=== PATIENT | male | born 1970 | race Caucasian/White ===

== ENCOUNTER 2023-07-26 05:58 | Day surgery (SDC) | payer BC, SELFPAY ==
[2023-07-05 12:34] VITALS: BMI 33.4
[2023-07-05 13:04] LABS: % Basophils 0.8 % (0-2); % Eosinophils 2.6 % (0-6); % Immature Granulocytes 0.3 % (0-0.5); % Lymphocytes 45.7 % (20.5-51.1); % Monocytes 8.2 % (1.7-9.3); % Neutrophils 42.4 % (42.2-75.2); Absolute Basophils 0.1 10^3/uL (0-0.2); Absolute Eosinophils 0.2 10^3/uL (0-0.7); Absolute Lymphocytes 2.8 10^3/uL (1.2-3.4); Absolute Monocytes 0.5 10^3/uL (0.1-0.6); Absolute Neutrophils 2.6 10^3/uL (1.4-6.5); Hematocrit 45.7 % (39.0-52.0); Hemoglobin 16.1 g/dL (13.0-18.0); Mean Corp Hgb Conc. 35.2 g/dL (33.0-37.0); Mean Corpuscular Hgb 29.8 pg (27.0-31.0); Mean Corpuscular Volume 84.5 fL (80.0-94.0); Mean Platelet Volume 9.4 fL (7.4-10.4); Nucleated Red Blood Cells % 0 % (-); Platelet Count 223 10^3/uL (130-400); Red Blood Cell Count 5.41 10^6/uL (4.70-6.10); White Blood Cell Count 6.1 10^3/uL (4.8-10.8)
[2023-07-05 13:14] LABS: INR 1.05; PT 13.6 Sec (11.4-14.6)
[2023-07-05 13:20] LABS: ALT (SGPT) 53 U/L (0-50); AST (SGOT) 42 U/L (17-59); Albumin 4.5 g/dl (3.5-5.0); Alkaline Phosphatase 95 U/L (38-126); Blood Urea Nitrogen 24 mg/dl (9-20); Calcium 9.3 mg/dl (8.4-10.2); Carbon Dioxide 31 mmol/L (22-30); Chloride 101 mmol/L (98-107); Estimated Creatinine Clearance 103 ml/min; Glucose 95 mg/dl (70-99); Magnesium 2.1 mg/dl (1.6-2.3); Potassium 4.1 mmol/L (3.5-5.1); Sodium 135 mmol/L (135-145); Total Bilirubin 0.6 mg/dl (0.2-1.3); Total Protein 7.2 g/dl (6.3-8.2); eGFR > 60.00
[2023-07-26] VITALS (24 sets, daily range): BP systolic 109–131; BP diastolic 72–83; BMI 32.6
[2023-07-26 09:02] LABS: ACT-LR - POC 281 Seconds (116-155)
[2023-07-26 09:22] LABS: ACT-LR - POC 290 Seconds (116-155)
[2023-07-26 09:41] LABS: ACT-LR - POC 310 Seconds (116-155)
--- NOTE | 2023-07-26 09:55 | ITS.CL.ABL ---
[employer] - Ablation
Ablation
Procedure Report:
ELECTROPHYSIOLOGY ABLATION STUDY
DATE:: July 26, 2023 referring: Dr. Christiano florian
INDICATION: Paroxysmal supraventricular tachycardia in the form of atrial fibrillation.
HISTORY: See H and P. As above
ANTIARRHYTHMIC DRUG: Patient opted for pulmonary vein isolation
PRE-PROCEDURE APOLLO: No atrial thrombus, marked interatrial septal aneurysm
PRESENTING RHYTHM: Sinus bradycardia
'TIME-OUT': called and confirmed.
SEDATION/ANESTHESIA: provided via the anesthesia department using general anesthesia (LMA).
INTRAVENOUS/ARTERIAL ACCESS:
Right femoral venous - 8Fr
Left femoral venous - 8 Fr, 6 Fr
Ultrasound guidance for bilateral femoral vein access was utilized by me to obtain access with demonstration of normal anatomy
CHADS-VASC Score:
HAS-Bled Score
PROCEDURE:
1. A decapolar CS catheter was placed within the CS for mapping and pacing. This was also used as the reference catheter for the 3-D map.
2. The intracardiac ultrasound catheter was positioned in the RA to identify the FO for targeting of transseptal puncture, assist in identification of the pulmonary vein ostia, monitoring pre and post ablation pulmonary vein flow velocities,
monitoring for 'bubble' formation during RF application as a sign of thermal injury, and to monitor for pericardial effusion during mapping and ablation procedure. Left atrial size, LV ejection fraction, and pulmonary vein flows were monitored
pre and post ablation procedure. The other valves were inspected and found to be free of significant regurgitation or stenosis.
3. Half of the calculated heparin bolus was administered prior to the first transeptal puncture. Transseptal puncture was performed to diagnose RA and LA pressure so that safety of LA mapping and ablation could be further assessed, and to access
the left atrium and pulmonary veins for mapping and ablation. This entailed advancing an 8 Fr SL-1 sheath with dilator into the superior vena cava and withdrawing both (monitoring intracardiac ultrasound, fluoroscopy and tip pressure) with the tip
oriented toward the atrial septum. The fossa ovalis was engaged (indicated by sudden displacement of the sheath tip as well as tenting of the fossa seen on intracardiac ultrasound). Left atrial access required a pass with the Brock[place]brough needle
extended. Left atrial catheter position was confirmed by pressure monitoring (RA mean pressure 8 mm Hg and LA mean presure 12 mm Hg), LA saturation (99%), as well as fluoroscopy. The sheath was advanced over the dilator and positioned in the left
atrium. A safe septal wire and ProTrac wire were utilized to bring the flex cath to the left atrium. Transseptal puncture and sheath exchange and left atrium was made somewhat more difficult due to the marked stretching from the interatrial septal
aneurysm and great care was taken under ultrasound guidance to utilize both the CSF wire and a ProTrac wire to mitigate risk. The remainder of the calculated heparin bolus was administered and heparin was
infused to maintain ACT at 300 -350 seconds throughout the case.
4. RA pacing was performed via the proximal decapolar poles and LA pacing was performed via the distal decapolr poles.
5. A quadrapolar catheter was first positioned at the His position for His Bundle recording which was tagged via the 3-D Navex sytem, and then passed to the RVA for RV pacing and recording.
6. The ablation catheter was positioned through one of the transeptal seaths and a 20 pole ring mapping catheter was positioned through the second seath into the LA and then the ostia of the LIPV, LSPV, RSPV and the RIPV.
7. Next, a 3-D map was created using Navex. A 3-D reconstructed CT image was compared to the 3-D Navex map to assist in anatomic interpretation, mapping and ablation. The CT image and the NavX image were fused.
8. Pulmonary vein and extrapulmonary lesions were given. 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 The pulmonary veins were isolated with a 28 mm cryoballoon isolating
both left veins and the 3 right veins. Extrapulmonary vein lesions were given to the roof outside the left superior pulmonary vein with a 23 mm cryoballoon and at the inferior posterior region outside the right inferior pulmonary vein each for an
additional 3 minutes.
9. Normal sinus node AV node function were noted.
TOTAL FLOURO TIME: 21.6 minutes 209 mGy
TOTAL RF DURATION: 0 minutes
REVERSAL OF HEPARIN: 40 mg of protamine, slow IV administration
COMPLICATIONS:
None
Intracardiac US shows no pericardial effusion post ablation.
SUMMARY:
Complex left atrial mapping and ablation.
Isolation of all 4 pulmonary veins as above. Extrapulmonary lesions directed towards the roof outside the left superior pulmonary vein and the inferior posterior wall outside the right inferior pulmonary vein.
RECOMMENDATIONS:
1. Admit to monitored bed.
2. Resume anticoagulation
3. Out of bed 4 hours
4. Consider same-day discharge
Copy to: Dr. Christiano florian
--- NOTE | 2023-07-26 12:10 | PTCARENOTE ---
Dr Cardenas at pt bedside speaking to pt and pt's .
[2023-07-26] MEDS: ANESTHETIC LOZENGE 1 LOZENGE PO (12:11)
--- NOTE | 2023-07-26 13:04 | W.PN.UPDATE ---
Update Note
Progress Note Update
52 yo WM s/p PVI (same day). He feels good, no cp, sob, brittny diet, voiding, amb w/o dizziness, b/l groins c/d/i, EKG SR. He will continue OAC Eliquis, dose at 4pm at home. Activity restrictions reviewed. He will f/u Dr. Florian in 2 mo. He is for d/c
home after 3pm.
SUMMARY:�
Complex left atrial mapping and ablation.
Isolation of all 4 pulmonary veins as above.� Extrapulmonary lesions directed towards the roof outside the left superior pulmonary vein and the inferior posterior wall outside the right inferior pulmonary vein.
RECOMMENDATIONS:
1. Admit to monitored bed.
2. Resume anticoagulation
3.� Out of bed 4 hours
4.� Consider same-day discharge
Copy to: Dr. Christiano florian
--- NOTE | 2023-07-26 14:23 | PTCARENOTE ---
Estefania Springer FLO[employer] PLAN ADJUSTER at pt's bedside speaking to pt and pt's .
[2023-07-26] MEDS: ELIQUIS 5 MG PO (14:51)
--- NOTE | 2023-07-26 14:57 | CM ---
Priced Eliquis thru patient's RX plan: [employer]- [phone]. Patient has a annual family deductible to meet: $3200. He has met [phone] thus far. Once deductible is met, cost of Eliquis will be $0.
I can provide coupons for Eliquis: free 30 d, $10/mo coupon.
TT to [facility] to update.
== END 2023-07-26 15:00 | disposition home or self-care (01) ==
LOC: CATH 05:58
PROVIDERS: ATTENDING PHYSICIAN Internal Medicine Cardiovascular Disease; FAMILY PHYSICIAN Family Medicine; OTHER PHYSICIAN Internal Medicine Cardiovascular Disease
DX: I48.0 Paroxysmal atrial fibrillation (principal); I10 Essential (primary) hypertension; E78.5 Hyperlipidemia, unspecified; Z77.22 Contact with and (suspected) exposure to environmental tobacco smoke (acute) (chronic); E66.8 Other obesity; Z68.33 Body mass index [BMI] 33.0-33.9, adult; Z79.01 Long term (current) use of anticoagulants
CPT/HCPCS: C1766; C1894; C1733 ×2; C1769; C1730; C1893; C1892; C1759; 36415; 75572; 76937; 80053; 83735; 85025; 85347; 85610; 86850; 86900; 86901; 93005; 93656; 93657; Q9967

== ENCOUNTER 2023-08-22 06:37 | Emergency (ER) | payer BC, SELFPAY ==
[2023-08-22] VITALS (7 sets, daily range): BP systolic 130–178; BP diastolic 74–102; BMI 33.1
[2023-08-22 07:15] LABS: Urine Albumin 2+ (Neg - Trace); Urine Bilirubin 1+ (Negative); Urine Character Very Cloudy (Clear); Urine Color Amber; Urine Glucose Negative (Negative); Urine Ketone 1+ (Negative); Urine Leukocyte Trace (Negative); Urine Nitrite Negative (Negative); Urine Occult Blood 4+ (Negative); Urine Specific Gravity 1.025 (<1.030); Urine Urobilinogen Negative (Neg - 1+)
[2023-08-22 07:30] LABS: Urine Red Blood Cell >100 /HPF (0-2)
--- NOTE | 2023-08-22 08:33 | ED.GENMED ---
History of Present Illness
General
Chief Complaint: Male Genito-Urinary Symptoms
Source: patient
Exam Limitations: none
Time Seen by Provider: 08/22/23 08:25
Nursing documentation reviewed up to this point in time: agreed with
Travel History
Have you had any contact with someone who has COVID-19?: No
Do you have any symptoms of coronavirus? Fever > 100 degrees, chills, cough, shortness of breath, sore throat, loss of taste or smell, muscle aches, or headache?: No
History of Present Illness
History of Present Illness:
Patient is a 52-year-old male who presents to the ER for evaluation. Patient has a history of hypertension and recent A-fib. Patient was cardioverted 07/26/2023 and has been on Eliquis for the past 2 months. Patient started with hematuria
yesterday at 3 PM. He noticed bright red bleeding. He denies any clots. He he does feel little pressure in his lower abdomen. He denies any injury. He did injure his right shoulder 1 week ago and has been taking ibuprofen. He denies any fever
chills nausea vomiting back pain. Denies any weakness lightheaded dizziness.
Review of Systems
Review of Systems
Allergies reviewed?: Yes
All Other Systems: ROS reviewed and negative except as documented in HPI and ROS
Constitutional: Reports no symptoms; Denies fever or chills
EENT: Reports no symptoms
Respiratory: Reports no symptoms
ABD/GI: Reports other (lower abd pressure )
: Reports bleeding
Musculoskeletal: Reports no symptoms
Skin: Reports no symptoms
Neurological: Reports no symptoms
Psychiatric: Reports no symptoms
Phy Exam
General Physical Exam
General Presentation: no apparent distress
General age: appears stated age
General Skin: warm and dry
General Habitus: normal
General Mental: alert
General Hydration: appears well hydrated
Gastrointestinal Exam
Gastrointestinal Exam: other (suprapubic tenderness )
Neurological Exam
Neurological Exam: alert
Course
Orders/Labs/Results
Orders:
Orders
08/22/23 06:52
Shoulder, Right, Trauma [CR Shoulder, Trauma - Right] Urgent
Comment:
Reason For Exam: injured r shoulder 1 wk ago and has limited rom
08/22/23 07:03
Urinalysis Reflex To Culture Urgent
Date Specimen was Collected: 08/22/23
Time Specimen was Collected: 07:00
Urine Microscopic Reflex Cult Urgent
Urine Culture Urgent
ADILENE Source: U
Specimen Description:
Date Specimen was Collected: 08/22/23
Time Specimen was Collected: 07:00
08/22/23 08:26
IV Insert/Care/Rem.- Treatment PRN
0.9% Sodium Chloride 1000 ml [Nss] 1,000 ml IV BOLUS
08/22/23 08:44
Complete Blood Count/With Diff Urgent
Comprehensive Metabolic Panel Urgent
08/22/23 10:08
CT Abd/pel Without Iv Or Oral Urgent
Comment:
Reason For Exam: right side pain/hematuria
08/22/23 10:27
Electrocardiogram (*1) Stat
Reason for Study: Other
Other Reason for Exam: chest pain
EKG- Treatment ONCE
Abnormal Lab Results
08/22/23 08/22/23
07:03 08:44
WBC 14.1 H 10^3/uL
(4.8-10.8)
Abs Immat Gran (auto) 0.1 H 10^3/uL
(0-0.05)
Absolute Neuts (auto) 12.1 H 10^3/uL
(1.4-6.5)
Absolute Lymphs (auto) 1.1 L 10^3/uL
(1.2-3.4)
Absolute Monos (auto) 0.7 H 10^3/uL
(0.1-0.6)
Immature Gran % 0.6 H %
(0-0.5)
Neutrophils % 85.8 H %
(42.2-75.2)
Lymphocytes % 8.1 L %
(20.5-51.1)
BUN 24 H mg/dl
(9-20)
Glucose 117 H mg/dl
(70-99)
ALT 52 H U/L
(0-50)
Urine Ketones 1+ A
(Negative)
Ur Occult Blood Reflex 4+ A
(Negative)
Urine Bilirubin 1+ A
(Negative)
Leukocyte Esterase Rfl Trace A
(Negative)
Urine RBC >100 A /HPF
(0-2)
Urine Albumin (Reflex) 2+ A
(Neg - Trace)
08/22/23 08:44
08/22/23 08:44
Vital Signs
Initial and Last Documented VS:
Initial Vital Signs
Temp Pulse Resp BP Pulse Ox
97.5 F 70 17 178/102 97
08/22/23 06:47 08/22/23 06:47 08/22/23 06:47 08/22/23 06:47 08/22/23 06:47
Last Documented Vital Signs
Temp Pulse Resp BP Pulse Ox
97.5 F 75 17 136/78 97
08/22/23 06:47 08/22/23 11:45 08/22/23 11:45 08/22/23 11:00 08/22/23 11:45
Industrial Engineering consulted with Physician
Industrial Engineering consulted with physician?: Yes
Name of Physician Consulted: jez
MDM/Problems Addressed
Differential Diagnosis Includes:
Not limited to hematuria anemia kidney stone UTI
MDM/Problems Addressed:
Patient is a 52-year-old male who presented with hematuria. Patient is on Eliquis for heart ablation for A-fib. Patient arrives in sinus rhythm. Patient presented with complaints of hematuria but denied clots. He did have some mild discomfort in
his right abdomen right groin. Patient was found to have a 4�5 calculus within the right distal ureter proximal to the right UVJ. Patient no acute distress. No clots here in the ER no nausea vomiting fever chills. White count minimally elevated
likely stress/pain response no nitrates in urine patient has not required any medication for discomfort. Will DC with Flomax with instructions to hold Eliquis today and tomorrow. He will be given information for urology and instructed on what to
return for. In addition patient had some complaints of right shoulder discomfort after lifting weights likely mild sprain .
Chronic conditions affecting care:
On Eliquis for recent cardiac ablation 07/26/23
*Radiology
Radiology exam reviewed: radiology read reviewed
*Pulse Oximetry
Patient hypoxic: no
*EKG
Interpreted by ED Provider?: Yes
Comparison EKG: no changes
Heart Rate: 69
Rate: normal
Rhythm: sinus
*Critical Care Note
Total Time (30-74mins, 75-104mins- exclusive of procedures): Not Applicable
ED Attending Note
-
Portions of this chart may have been created with voice recognition software.� Occasional wrong word or��sound alike� substitutions may have occurred due to the inherent limitations of voice recognition software.
Discharge Plan
Departure
Patient Disposition: Home (Routine Discharge)
Date of Disposition: 08/22/23
Time of Disposition: 12:03
Patient with high blood pressure during this ER visit?: Yes
Covid-19: Not Applicable
Discharge Problem:
Renal colic on right side, Hematuria, Strain of shoulder, right
Instructions: Renal Colic (DC), Blood in the Urine (Hematuria), Adult (DC), BLOOD PRESSURE
Prescriptions:
New
tamsulosin [Flomax] 0.4 mg capsule
0.4 mg PO DAILY Qty: 7 0RF
No Action
multivitamin Tablet
1 tab PO QPM
carvedilol 3.125 mg Tablet
1.564 mg PO BID
turmeric
1,000 mg PO BID
Eliquis 5 mg Tablet
5 mg PO BID Qty: 60 5RF
Referrals:
Mitul Garsia MD [Family Provider] -
Tarik Perera MD [Active] -
Activity Restrictions/Additional Instructions:
As discussed to stay well-hydrated. Start Flomax once a day for kidney stone. This medication was sent to pharmacy. Strain all urine hold Eliquis for today and tomorrow. Follow-up with urology. Call today for an appointment as soon as possible.
Tylenol 650 mg every 4-6 hours as needed for discomfort. Return however to the ER if any worsening of symptoms of increased pain nausea vomiting fever chills back pain increasing blood/clots in urine or any further concerns.
Regarding shoulder sprain strain you may take Tylenol for discomfort and follow-up with your family doctor as needed.
Interventions
Interventions:
*Risk Screen - Suicide Last Done: 08/22/23 08:45
*General Assessment Last Done: 08/22/23 08:45
*Neglect/Abuse Screening Last Done: 08/22/23 08:45
ED- Fall Risk Assessment Last Done: 08/22/23 08:45
*ED COVID-19 Vaccine History Last Done: 08/22/23 08:45
ED-Male Genitourinary Assessment Last Done: 08/22/23 08:45
Discharge Date and Time
Print Language: SENEGALESE
[2023-08-22] MEDS: NSS 1000 IV (08:47)
[2023-08-22 09:01] LABS: % Basophils 0.3 % (0-2); % Eosinophils 0.1 % (0-6); % Immature Granulocytes 0.6 % (0-0.5); % Lymphocytes 8.1 % (20.5-51.1); % Monocytes 5.1 % (1.7-9.3); % Neutrophils 85.8 % (42.2-75.2); Absolute Immature Granulocytes 0.1 10^3/uL (0-0.05); Absolute Lymphocytes 1.1 10^3/uL (1.2-3.4); Absolute Monocytes 0.7 10^3/uL (0.1-0.6); Absolute Neutrophils 12.1 10^3/uL (1.4-6.5); Hematocrit 45.2 % (39.0-52.0); Hemoglobin 15.9 g/dL (13.0-18.0); Mean Corp Hgb Conc. 35.2 g/dL (33.0-37.0); Mean Corpuscular Hgb 29.8 pg (27.0-31.0); Mean Corpuscular Volume 84.6 fL (80.0-94.0); Mean Platelet Volume 9.4 fL (7.4-10.4); Nucleated Red Blood Cells % 0 % (-); Platelet Count 203 10^3/uL (130-400); Red Blood Cell Count 5.34 10^6/uL (4.70-6.10); Red Cell Dist. Width 12.6 % (11.5-14.5); White Blood Cell Count 14.1 10^3/uL (4.8-10.8)
[2023-08-22 09:11] LABS: ALT (SGPT) 52 U/L (0-50); AST (SGOT) 35 U/L (17-59); Albumin 4.5 g/dl (3.5-5.0); Alkaline Phosphatase 115 U/L (38-126); Blood Urea Nitrogen 24 mg/dl (9-20); Calcium 9.9 mg/dl (8.4-10.2); Carbon Dioxide 26 mmol/L (22-30); Chloride 102 mmol/L (98-107); Estimated Creatinine Clearance 102 ml/min; Glucose 117 mg/dl (70-99); Potassium 4.5 mmol/L (3.5-5.1); Sodium 138 mmol/L (135-145); Total Bilirubin 0.5 mg/dl (0.2-1.3); Total Protein 6.9 g/dl (6.3-8.2); eGFR > 60.00
== END 2023-08-22 12:34 | disposition home or self-care (01) ==
LOC: EMR 06:37
PROVIDERS: Nurse Practitioner; EMERGENCY PHYSICIAN Student in an Organized Health Care Education/Training Program; FAMILY PHYSICIAN Family Medicine
DX: N13.2 Hydronephrosis with renal and ureteral calculous obstruction (principal); S46.911A Strain of unspecified muscle, fascia and tendon at shoulder and upper arm level, right arm, initial encounter; X58.XXXA Exposure to other specified factors, initial encounter; R31.9 Hematuria, unspecified; I10 Essential (primary) hypertension; I48.91 Unspecified atrial fibrillation; Z79.01 Long term (current) use of anticoagulants
CPT/HCPCS: 99285; 96360; 96361; 73030; 74176; 80053; 81003; 81015; 85025; 87086; 93005

== ENCOUNTER → 2023-10-07 14:44 | Outpatient (REF) | payer BC, SELFPAY | LOC: HWRAD 14:44 | PROVIDERS: ATTENDING PHYSICIAN Specialist; FAMILY PHYSICIAN Family Medicine | DX: N20.1 Calculus of ureter (principal); N20.0 Calculus of kidney | CPT/HCPCS: 76775 ==

== ENCOUNTER → 2023-10-15 | Outpatient (REF) | payer BC, SELFPAY | LOC: DHSLP | PROVIDERS: ATTENDING PHYSICIAN Internal Medicine Critical Care Medicine; FAMILY PHYSICIAN Family Medicine | DX: G47.30 Sleep apnea, unspecified (principal); R06.83 Snoring | CPT/HCPCS: 95800 ==